=== PATIENT | male | born 1990 | race Hispanic/Latino ===

== ENCOUNTER → 2022-12-09 | Day surgery (SDC) | payer BC ==
[~2022-12-09] MED LIST: LEVOTHYROXINE75 MCG PO; LIDOCAINE HCL 2% LOCAL INJ 5 ML SDV VIAL INJ ONE; PROPOFOL IV EMULSION 10 MG/ML 20 ML VIAL ONE; PROPOFOL IV EMULSION 50 ML IV ONE; VITAMIN D250 MC1 PO
[2022-12-09 09:45] VITALS: BP 118/77
== END | disposition home or self-care (01) ==
LOC: OR 06:21
PROVIDERS: ATTEND Internal Medicine Gastroenterology
DX: K59.09 Other constipation (principal); D12.0 Benign neoplasm of cecum; D12.5 Benign neoplasm of sigmoid colon; K62.6 Ulcer of anus and rectum; K64.8 Other hemorrhoids; E03.9 Hypothyroidism, unspecified; Z79.899 Other long term (current) drug therapy
CPT/HCPCS: 36415; 45380; 84443; J2001; J2704 ×2; 45384